=== PATIENT | female | born 1990 | race Caucasian/White ===

== ENCOUNTER 2023-05-07 13:21 | Emergency (ER) | payer OTHER, SELFPAY ==
[2023-05-07 13:24] VITALS: BP 133/83; PULSE 119; RESP 16; TEMP 37.1; O2SAT 100; BMI 34.9
--- NOTE | 2023-05-07 13:36 | ED.URI1 ---
HPI - URI/Sore Throat General Chief Complaint: Upper Respiratory Infection Stated Complaint: URTI/ FEVER Time Seen by Provider: 05/07/23 13:28 Source: patient and family Limitations: no limitations History of Present Illness HPI Narrative: 32-year-old female who is six weeks presents to the emergency department for a chief complaint of cough and congestion. She's been this way for a few days. She had Covid over [place]. No vomiting or vaginal bleeding. Related Data Allergies Allergy/AdvReac Type Severity Reaction Status Date / Time No Known Drug Allergies Allergy Verified 05/07/23 13:28 Review of Systems ROS Narrative A ten point review of systems is negative except as noted above. PFSH PFSH Social History Smoking status: Never smoker Exam Narrative Exam Narrative: Nurses note and vital signs reviewed and patient is not hypoxic. General: The patient appears well and in no apparent distress. Patient is resting comfortably on cart. Skin: Warm, dry, no pallor noted. There is no rash noted. Head: Normocephalic, atraumatic Eye: Normal conjunctiva, no drainage Ears, Nose, Mouth, and Throat: oral mucosa is moist. Nares patent. no pharyngeal erythema or exudate. she has nasal congestion. Cardiovascular: Regular Rate and Rhythm Respiratory: Patient is in no distress, no accessory muscle use, lungs are clear to auscultation, no wheezing, rales or rhonchi Back: non-tender GI: soft and nontender Musculoskeletal: The patient has no evidence of calf tenderness, no pitting edema, symmetrical pulses noted bilaterally Neurological: A&O, normal speech Psychiatric: Cooperative Constitutional Vital Signs, click to edit/add: Last Vital Signs Temp 98.8 F 05/07/23 13:24 Pulse 119 H 05/07/23 13:24 Resp 16 05/07/23 13:24 BP 133/83 05/07/23 13:24 Pulse Ox 100 05/07/23 13:24 O2 Del Method Room Air 05/07/23 13:24 Course Vital Signs Vital signs: Vital Signs Temperature 98.8 F 05/07/23 13:24 Pulse Rate 119 H 05/07/23 13:24 Respiratory Rate 16 05/07/23 13:24 Blood Pressure 133/83 05/07/23 13:24 Pulse Oximetry 100 05/07/23 13:24 Oxygen Delivery Method Room Air 05/07/23 13:24 Temperature 98.8 F 05/07/23 13:24 Pulse Rate 119 H 05/07/23 13:24 Respiratory Rate 16 05/07/23 13:24 Blood Pressure 133/83 05/07/23 13:24 Pulse Oximetry 100 05/07/23 13:24 Oxygen Delivery Method Room Air 05/07/23 13:24 MDM - URI/Sore Throat MDM Narrative Medical decision making narrative: Covid test is negative and influenza is positive. She was informed. She was recommended Tylenol for fever and body aches. Treatment diagnosis and follow-up were discussed with the patient. Differential Diagnosis Differential diagnosis: Likely upper respiratory infection, bronchitis, influenza and other (Covid) Lab Data Attestation: I reviewed the patient's lab results. Labs: Lab Results 05/07/23 Range/Units 13:30 Influenza Type A Ag Positive A Influenza Type B Ag Negative SARS-CoV-2 Ag (CV2AG) Negative (NEGATIVE) Discharge Plan Discharge Chief Complaint: Upper Respiratory Infection Clinical Impression: Influenza Patient Disposition: Home, Self-Care Time of Disposition Decision: 14:02 Condition: Good Mode of Transportation: Private Vehicle Instructions: Influenza (ED) Stand Alone Forms: Portal Instructions Referrals: JUAN DAVID ALCANTAR [Primary Care Provider] - 1 week
[2023-05-07 13:53] LABS: Influenza Virus A Antigen Positive; Influenza Virus B Antigen Negative; Internal Control Within Normal Limits; SARS-CoV-2 Ag NEGATIVE (NEGATIVE)
== END 2023-05-07 14:18 | disposition home or self-care (01) ==
PROVIDERS: Emergency Provider Emergency Medicine; PCP Family Medicine
DX: O99.511 Diseases of the respiratory system complicating pregnancy, first trimester (principal); J10.1 Influenza due to other identified influenza virus with other respiratory manifestations; Z3A.01 Less than 8 weeks gestation of pregnancy; Z86.16 Personal history of COVID-19; Z20.822 Contact with and (suspected) exposure to COVID-19
CPT/HCPCS: 87635; 87804; 87811; 99283